=== PATIENT | male | born 1965 | race Caucasian/White ===

== ENCOUNTER 2021-08-01 13:17 | Emergency (ER) | payer BC, OTHER ==
[2021-08-01 13:30] VITALS: BMI 26.4
[2021-08-01] MEDS ORDERED: CASIRIVIMAB/IMDEVIMAB 10 ML in SODIUM CHLORIDE 100 ML IVPB ONE (13:59)
[2021-08-01 14:36] VITALS: TEMP 97.9
[2021-08-01 15:48] VITALS: BP 114/74; PULSE 78
== END 2021-08-01 17:29 | disposition home or self-care (01) ==
LOC: JCOVINFU 13:17
DX: U07.1 COVID-19 (principal)
CPT/HCPCS: 99284-25; Q0240